=== PATIENT | female | born 1980 | race Caucasian/White ===

== ENCOUNTER 2017-06-22 10:58 | Emergency (ER) | payer MEDICAID ==
[~2017-06-22] VITALS: Ht 162.6 cm; Wt 77.0 kg
[~2017-06-22 10:58] MED LIST: CYCL-319 PO; FERR-55 PO; IBUP-1542 PO; IRON18TA PO; NITR-58 PO; PREN-39 PO
[2017-06-22 11:00] VITALS: Ht 162.6 cm; Wt 77.0 kg
[2017-06-22] MEDS ORDERED: KETOROLAC 60 MG INJ IM STA (12:48)
--- NOTE | 2017-06-22 13:37 | RADRPT ---
PROCEDURE: XR Cervical Spine. CLINICAL INDICATION: pain TECHNIQUE: AP, lateral and odontoid views of the cervical spine were performed. The images were re viewed on a PACS workstation. COMPARISON: [facility] 08/08/2015 FINDINGS: There is straightening of the cervical lordosis. The vertebral body alignment, height and osseous mineralization are normal. The intervertebral disc spaces are well maintained. There is linear calcification of the anterior longitudinal ligament at C4-C7, unchanged. The prevertebral soft tissues are normal. No radiopaque foreign bodies are identified. There is no acute fracture or subluxation. RPTAT: AA IMPRESSION: Straightening of the cervical lordosis. Unchanged mild calcification of the anterior longitudinal ligament at C4-C7. .Willi Navas MD, Date Time Electronically viewed and signed by .Willi Navas MD, on 06/22/2017 13:36 .S/
--- NOTE | 2017-06-22 13:38 | RADRPT ---
PROCEDURE: XR Lumbar Spine. CLINICAL INDICATION: back pain TECHNIQUE: AP, lateral and cone-down lateral view of the lumbar spine were obtained. COMPARISON: [facility] 08/08/2015 FINDINGS: There is normal vertebral mineralization. There is mild spondylosis. There is minimal levoscoliosis of the lumbar spine.. No fracture or subluxation is seen. The disc spaces are normal in appearance. The posterior elements are unremarkable. The soft tissues appear normal. There are bilateral tubal occlusion devices in place. RPTAT: AA IMPRESSION: Minimal levoscoliosis of the lumbar spine. Mild spondylosis. No acute fracture. .Willi Navas MD, MD Date Time Electronically viewed and signed by .Willi Navas MD, on 06/22/2017 13:38 .S/
--- NOTE | 2017-06-22 13:38 | RADRPT ---
PROCEDURE: XR Lumbar Spine. CLINICAL INDICATION: back pain TECHNIQUE: AP, lateral and cone-down lateral view of the lumbar spine were obtained. COMPARISON: [facility] 08/08/2015 FINDINGS: There is normal vertebral mineralization. There is mild spondylosis. There is minimal levoscoliosis of the lumbar spine.. No fracture or subluxation is seen. The disc spaces are normal in appearance. The posterior elements are unremarkable. The soft tissues appear normal. There are bilateral tubal occlusion devices in place. RPTAT: AA IMPRESSION: Minimal levoscoliosis of the lumbar spine. Mild spondylosis. No acute fracture. .Willi Navas MD, MD Date Time Electronically viewed and signed by .Willi Navas MD, on 06/22/2017 13:38 .S/
--- NOTE | 2017-06-22 13:38 | RADRPT ---
PROCEDURE: XR Lumbar Spine. CLINICAL INDICATION: back pain TECHNIQUE: AP, lateral and cone-down lateral view of the lumbar spine were obtained. COMPARISON: [facility] 08/08/2015 FINDINGS: There is normal vertebral mineralization. There is mild spondylosis. There is minimal levoscoliosis of the lumbar spine.. No fracture or subluxation is seen. The disc spaces are normal in appearance. The posterior elements are unremarkable. The soft tissues appear normal. There are bilateral tubal occlusion devices in place. RPTAT: AA IMPRESSION: Minimal levoscoliosis of the lumbar spine. Mild spondylosis. No acute fracture. .Willi Navas MD, MD Date Time Electronically viewed and signed by .Willi Navas MD, on 06/22/2017 13:38 .S/
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
[2017-06-22] MEDS ORDERED: BACL10TA PO (14:01)
[2017-06-22] MEDS ORDERED: IBUP-1542 PO (14:01)
[2017-06-22] MEDS ORDERED: HYDR-906 PO (14:01)
== END 2017-06-22 14:32 | disposition home or self-care (01) ==
LOC: FTE 10:58
DX: S16.1XXA Strain of muscle, fascia and tendon at neck level, initial encounter (principal); V49.40XA Driver injured in collision with unspecified motor vehicles in traffic accident, initial encounter
CPT/HCPCS: 72040; 72100; 96372; J1885; Z7502